=== PATIENT | male | born 1975 | race Caucasian/White ===

== ENCOUNTER 2025-03-29 10:51 | Emergency (ER) | payer OTHER ==
[~2025-03-29] VITALS: Ht 177.8 cm; Wt 126.0 kg
[2025-03-29] MEDS ORDERED: ALLOPURINOL300 MG PO (11:33)
[2025-03-29] MEDS ORDERED: LEVOTHYROXINE25 MC1 PO (11:33)
[2025-03-29] MEDS ORDERED: LISINOPRIL10 MG PO (11:34)
[2025-03-29] MEDS ORDERED: ARTHRITIS PAIN57 GM (11:34)
[2025-03-29] MEDS ORDERED: VITAMIN D310 MC4 PO (11:35)
[2025-03-29] MEDS ORDERED: MECLIZINE HCL12.5 MG PO (11:35)
[2025-03-29 11:44] LABS: BASOPHILS 0.5 % (0.2-1.2); EOSINOPHILS 2.9 % (0.8-7.0); LYMPHOCYTES 28.8 % (21.8-53.1); MCH 31.8 PG (25.7-32.2); MCHC 35.2 g/dL (32.3-36.5); MCV 90.4 fL (79.0-92.2); MONOCYTES 8.5 % (5.3-12.2); NEUTROPHILS 58.6 % (34.0-67.9); RBC 4.49 M/uL (4.63-6.08)
[2025-03-29 11:52] LABS: INR 1.07 (0.80-1.30); PROTIME 13.5 Sec (11.2-14.2)
[2025-03-29 11:57] LABS: ALT (SGPT) 73.0 U/L (14-59); AST (SGOT) 40.0 U/L (15-37); GLOMERULAR FILTRATION RATE,EST 107.0 mL/min (>60); PROTEIN, TOTAL 7.2 g/dL (6.4-8.2); UREA NITROGEN 13.0 mg/dL (7-18)
[2025-03-29] MEDS ORDERED: ASPIRIN81 MG PO (15:02)
[2025-03-29 15:25] VITALS: BP 138/84
--- NOTE | 2025-03-30 12:59 | EKG ---
[facility] [address] [facility] [place] [address] Signed Normal sinus rhythm Minimal voltage criteria for LVH, may be normal variant ( R in aVL ) Inferior infarct , age undetermined Abnormal ECG No previous ECGs available Confirmed by Sukhi Jackson DO ([id number]) on 03/30/2025 12:58:50 PM Electronically Signed By: SUKHI JACKSON DO 03/30/25 1259 PATIENT NAME: PABLO DRISCOLLShelly [place] Electrocardiogram DATE OF : 73 PHYSICIAN: SUKHI JACKSON DO REPORT #: [id number] REPORT IS CONFIDENTIAL AND NOT TO BE RELEASED WITHOUT AUTHORIZATION
== END 2025-03-29 15:25 | disposition home or self-care (01) ==
LOC: ED 10:51
PROVIDERS: Emergency Medicine
DX: R53.1 Weakness (principal); Z88.8 Allergy status to other drugs, medicaments and biological substances; Z91.018 Allergy to other foods; Z79.890 Hormone replacement therapy; Z79.899 Other long term (current) drug therapy
CPT/HCPCS: 36415; 70450; 70496; 70498; 70551; 71045; 80053; 85025; 85610; 85730; 93005; 93010; 99285-25; Q9967